=== PATIENT | male | born 1960 | race Caucasian/White ===

== ENCOUNTER 2021-12-24 06:13 | Day surgery (SDC) | payer OTHER ==
[~2021-12-24] VITALS: Ht 175.3 cm; Wt 82.5 kg
[2021-12-24] MEDS ORDERED: COZAAR25 MG PO (06:34)
[2021-12-24] MEDS ORDERED: HYDROCHLOROTH12.5 M1 PO (06:35)
[2021-12-24] MEDS ORDERED: NORVASC10 MG PO (06:35)
[2021-12-24] MEDS ORDERED: OMEPRAZOLE20 MG PO (06:35)
[2021-12-24] MEDS ORDERED: LIPITOR20 MG (06:35)
--- NOTE | 2021-12-24 08:34 | NUR ---
PT ALERT, ORIENTED AND SUPPORTED BY HIS DANY. PT HAS HAD SCOPE PREVIOUS, ALL QUESTIONS ASKED ANSWERED. DANY WILL REMIND FOR DC, PT REQUESTED PRAYER. I WILL FOLLOW NEEDED
--- NOTE | 2021-12-24 09:42 | NUR ---
12/24/21 0942 Iqra Hussein 0909 PT ARRIVED IN PACU SLEEPY WITH NO C/O'S. ABD SOFT. 0920 RESTING. REU.
--- NOTE | 2021-12-25 07:08 | OR ---
[facility] [address] [place], [place] [address] Signed DATE OF OPERATION: 12/24/2021 SURGEON: Antonette Leblanc MD PREOPERATIVE DIAGNOSIS: Personal history of colonic polyps. POSTOPERATIVE DIAGNOSES: 1. 10 mm pedunculated polyp at 28 cm (snare/hot biopsy). 2. 12 mm pedunculated polyp at distal right colon/transverse colon (snare). 3. 6 mm polyp at 80 cm. 4. Small single diverticulum in the left colon. PROCEDURE: Colonoscopy with snare polypectomy and hot biopsy. ESTIMATED BLOOD LOSS: None. INDICATIONS: Juancarlos is a 61-year-old gentleman, asked to see me for a followup colonoscopy. 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 He had a colonoscopy around [address] Cruz[address] He remembers having polyps removed. He had three small polyps measuring 4 mm, 5 mm and 6 mm in 2017. He was told on the telephone to follow up in 5 years. We have been working to track down those results. In the meantime he moved to [place], [place]. 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 He said he continues to drink a little wine each day, but he has cut it way down since he worked construction. He said he has no lower GI complaints. There is no family history of colon cancer or polyps. He did undergo an upper endoscopy in 2020 over in [place], [place]. He said they used Versed and fentanyl and he did fine. In the office, I gave him a booklet on colonoscopy. We reviewed the nature of the test. He understands there is risk including, but not limited to gas bloating, crampy abdominal pain, bleeding, perforation requiring surgery, and missed diagnosis. He told me that he nearly bled to after his last colonoscopy. He is well aware that he is not to take any NSAIDs or aspirin for at least one week if not two weeks after the procedure. We also reviewed the need for the Versed and fentanyl. He had expressed understanding and wished to proceed. PROCEDURE NOTE: Juancarlos was taken into our endoscopy suite and placed in the left lateral decubitus Electronically Signed By: ANTONETTE LEBLANC MD 12/25/21 0708 PATIENT NAME: JUANCARLOS STARR OPERATIVE REPORT DATE OF : 58 REPORT #: [id number] PHYSICIAN: ANTONETTE LEBLANC MD PCP: HARMEET KEMP MD REPORT IS CONFIDENTIAL AND NOT TO BE RELEASED WITHOUT AUTHORIZATION [facility] [address] [place], [place] [address] Signed position. He was given 8 mg of Versed and 150 mcg of fentanyl to cover the case. A digital rectal exam was performed. He had good sphincter tone. No external hemorrhoids. Prostate is a little indurated. The adult colonoscope had been introduced and advanced all the way around into the cecum under direct visualization of the camera. It took a little extra sedation as we went. His prep was quite good. We could easily see the appendiceal orifice and the ileocecal valve. The scope was then slowly withdrawn. We took pictures throughout for photodocumentation. We removed the above mentioned polyps. We did use the snare at 28 cm as well as the distal right colon/transverse colon. We did see just a single small diverticulum in the left colon. The scope was then retroflexed in the rectum and there was no additional pathology noted above the anal canal. After this, the gas was suctioned out and the colonoscope removed. Juancarlos tolerated the procedure quite well. RECOMMENDATIONS: Juancarlos will follow up in my office in 7 to 14 days. It looks like he is going to stay on at least a 3 to 5 year rotation. Antonette Leblanc MD ALB/MODL /[id number] cc: MD Antonette Walters MD Copies: HARMEET KEMP DMD, ANDREW L MD ~ Electronically Signed By: ANTONETTE LEBLANC MD 12/25/21 0708 PATIENT NAME: JUANCARLOS STARR OPERATIVE REPORT DATE OF : 58 REPORT #: [id number] PHYSICIAN: ANOTNETTE LEBLANC MD PCP: HARMEET KEMP MD REPORT IS CONFIDENTIAL AND NOT TO BE RELEASED WITHOUT AUTHORIZATION
== END 2021-12-24 09:55 | disposition home or self-care (01) ==
LOC: DS 06:13 → OPS 06:13 → DS 08:15 → OPS 09:55
PROVIDERS: ATTEND Colon & Rectal Surgery
PROC: 0DBL8ZZ Excision of Transverse Colon, Via Natural or Artificial Opening Endoscopic (ICD-10-PCS; 2021-12-24)
PROC: 0DBF8ZZ Excision of Right Large Intestine, Via Natural or Artificial Opening Endoscopic (ICD-10-PCS; principal; 2021-12-24 08:15)
DX: D12.2 Benign neoplasm of ascending colon (principal); D12.4 Benign neoplasm of descending colon; I10 Essential (primary) hypertension; K21.9 Gastro-esophageal reflux disease without esophagitis; E78.2 Mixed hyperlipidemia; K57.30 Diverticulosis of large intestine without perforation or abscess without bleeding; Z86.010 Personal history of colon polyps; Z20.822 Contact with and (suspected) exposure to COVID-19; Z72.89 Other problems related to lifestyle
CPT/HCPCS: 87502; 99153; G0500; J2250; J3010; J7121; U0003

== ENCOUNTER 2022-01-28 07:25 | Day surgery (SDC) | payer OTHER ==
[~2022-01-28] VITALS: Ht 175.3 cm; Wt 82.7 kg
[~2022-01-28 07:25] MED LIST: COZAAR25 MG PO; HYDROCHLOROTH12.5 M1 PO; LIPITOR20 MG; NORVASC10 MG PO; OMEPRAZOLE20 MG PO; VALACYCLOVIR1000 MG PO
--- NOTE | 2022-01-28 09:55 | NUR ---
01/28/22 0955 Chele Lilly REORIENTED PT TO TIME AND SITUATION. DENIES NAUSEA OR PAIN. FALLS ASLEEP EASILY
--- NOTE | 2022-01-29 07:28 | OR ---
[facility] [address] [place], [place] [address] Signed DATE OF OPERATION: 01/28/2022 SURGEON: Antonette Leblanc MD PREOPERATIVE DIAGNOSES: 1. Gastroesophageal reflux disease. 2. Possible Garcia's esophagus in October 2019 (Dr. Buckley). POSTOPERATIVE DIAGNOSES: 1. Small hiatal hernia. 2. GE junction at 38 cm. 3. Minimal distal gastritis. 4. No visible Garcia's esophagus. PROCEDURE: EGD with CLOtest and biopsies of the antrum and GE junction. ESTIMATED BLOOD LOSS: None. INDICATIONS: Juancarlos is a 61-year-old gentleman, who originally lived in [place], [place]. 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 He said back then he was drinking fairly heavy. He and his family moved down to [place], [place]. 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 He now only drinks one or two glasses of wine a day. He has had trouble with acid reflux requiring omeprazole. Without the omeprazole, he said he is miserable. I actually just helped him with a colonoscopy. In the meantime, we have been tracking down his records. He had gone over to Dr. Buckley in [place], [place]. He had upper endoscopy in October of 2019. No obvious hiatal hernia. He had a little bit of inflammation in the distal half of the stomach confirmed by biopsies. There was some concern he might have Garcia's esophagus. He had a small nodule taken and another biopsy taken down of the distal esophagus. There is some mild concern about goblet cells on the pathology report. He cannot specifically remember any followup recommendations after his upper endoscopy. We had a long discussion regarding his previous records as well as this idea of Garcia's esophagus. It would increase his risk of distal esophageal cancer by 11 times. He thought he wanted to repeat the upper endoscopy at this time with biopsies with plans to have his knee replaced in January of this year. In the office, I had given him a pamphlet on upper endoscopy. He understands the nature of the test. There is risk including, but not limited to gas bloating, crampy abdominal pain, bleeding, perforation requiring surgery, and missed Electronically Signed By: ANTONETTE LEBLANC MD 01/29/22 0728 PATIENT NAME: JUANCARLOS STARR OPERATIVE REPORT DATE OF : 58 REPORT #: [id number] PHYSICIAN: ANTONETTE LEBLANC MD PCP: HARMEET KEMP MD REPORT IS CONFIDENTIAL AND NOT TO BE RELEASED WITHOUT AUTHORIZATION [facility] [address] [place], [place] [address] Signed diagnosis. He has done well with IV Versed and fentanyl just a few weeks ago. He had expressed understanding and wished to proceed. PROCEDURE NOTE: Juancarlos was taken into our endoscopy suite and placed in the supine semi-recumbent position. The posterior oropharynx was anesthetized with Hurricaine spray. A bite block was utilized for the case. He was given a total of 6 mg of Versed and 100 mcg of fentanyl to cover the case. The adult gastroscope had been introduced and advanced all the way out into the 2nd portion of the duodenum without difficulty. The duodenum and pyloric channel were unremarkable. He had minimal inflammation in the distal half of the stomach. We went and took a biopsy of the antrum for CLOtest as well as pathologic review. Upon retroflexion of the scope, he did have quite a bit of up around the GE junction, which we were unable to clear. However, one can see he has a small hiatal hernia. The scope was withdrawn back up through the area of the GE junction, which was compliant without stricture. There was very minimal disruption to his Z-line. No obvious Garcia's esophagus. From above, I can see he has just a small hiatal hernia. We went ahead and took a couple biopsies in this area for pathologic review. His distal, middle and upper esophagus were unremarkable. After this, the gas was suctioned out the gastroscope removed. Juancarlos tolerated his procedure quite well. RECOMMENDATIONS: I will see Juancarlos back in my office in 7 to 14 days to review his results. He is coming back for repeat colonoscopy in three years. He may or may not consider a repeat upper endoscopy at the same time. Antonette Leblanc MD ALB/MODL /[id number] cc: MD Antonette Walters MD Copies: HARMEET KEMP DMD Electronically Signed By: ANTONETTE LEBLANC MD 01/29/22 0728 PATIENT NAME: JUANCARLOS STARR OPERATIVE REPORT DATE OF : 58 REPORT #: [id number] PHYSICIAN: ANTONETTE LEBLANC MD PCP: HARMEET KEMP MD REPORT IS CONFIDENTIAL AND NOT TO BE RELEASED WITHOUT AUTHORIZATION [facility] [address] [place], [place] [address] Signed ANTONETTE LEBLANC MD ~ Electronically Signed By: ANTONETTE LEBLANC MD 01/29/22 0728 PATIENT NAME: JUANCARLOS STARR OPERATIVE REPORT DATE OF : 58 REPORT #: [id number] PHYSICIAN: ANTONETTE LEBLANC MD PCP: HARMEET KEMP MD REPORT IS CONFIDENTIAL AND NOT TO BE RELEASED WITHOUT AUTHORIZATION
--- NOTE | 2022-01-30 17:02 | PATH ---
[facility] [address] [place], [place] [address] Signed SPECIMEN(S): A ANTRUM/PYLORUS BIOPSY SPECIMEN(S): B GE JUNCTION SPECIMEN SOURCE: A. ANTRUM/PYLORUS BIOPSY B. GE JUNCTION CLINICAL HISTORY: Acid reflux, possible Garcia's. Postop: Small hiatal hernia, mild gastritis FINAL PATHOLOGIC DIAGNOSIS: A. Stomach, antrum/pylorus, biopsy: - Gastric antral mucosa with focal active gastritis. - Negative for Helicobacter pylori by IHC. B. Gastroesophageal junction, biopsy: - Esophageal squamous mucosa with no significant pathologic changes. BRP:hanna:[id number] MICROSCOPIC EXAMINATION: Histologic sections of all submitted blocks are examined by light microscopy. These findings, together with the gross examination, support the pathologic diagnosis. GROSS DESCRIPTION: Two specimens are received in two containers, labeled "Juancarlos Dugan." A. The specimen, labeled " Ritchie Juancarlos, #1," and designated on the requisition "antrum/pylorus biopsy," is received in formalin and consists of one blancas soft tissue fragment that measures 0.5 cm in greatest dimension. The specimen is entirely submitted in cassette (A1). B. The specimen, labeled " Juancarlos Dugan, #2," and designated on the requisition "GE junction," is received in formalin and consists of three white-blancas soft tissue fragments that measure 0.4 to 0.6 cm in greatest dimension. The specimen is entirely submitted in cassette (B1). FB (under the direct supervision of a pathologist) The Gross Description was prepared using a voice recognition system. The report was reviewed for accuracy; however, sound-alike word errors, addition and/or deletions may occur. If there is any question about this report, please contact Client Services. ADDITIONAL NOTES: Immunohistochemical and/or in situ hybridization studies were performed on this PATIENT NAME: JUANCARLOS DUGAN PATHOLOGY DATE OF : 58 REPORT #: [id number] PHYSICIAN: LISA PATHOLOGY PCP: HARMEET KEMP MD REPORT IS CONFIDENTIAL AND NOT TO BE RELEASED WITHOUT AUTHORIZATION [facility] [address] [facility] [place], [place] [address] Signed case with the appropriate positive controls that react as expected. This test was developed, and its performance characteristics determined by [facility]. It has not been cleared or approved by the U.S. Food and Drug Administration. The FDA has determined that such clearance or approval is not necessary. This test is used for clinical purposes. It should not be regarded as investigational or for research. [facility] is certified under the Clinical Laboratory Improvement Amendments of 1988 (CLIA) as qualified to perform high complexity clinical laboratory testing. This assay has not been validated for specimens that have been decalcified. PERFORMING LABORATORY: The technical component was performed by [facility], [address] [place] [id number] (CLIA# [id number]). Professional interpretation was performed by [facility], [address] [place] [id number] (CLIA# [id number]). Diagnostician: Gonzalo Mcfarland MD Pathologist Electronically Signed 01/30/2022 Copies: ~ PATIENT NAME: JUANCARLOS DUGAN PATHOLOGY DATE OF : 58 REPORT #: [id number] PHYSICIAN: LISA PATHOLOGY PCP: HARMEET KEMP MD REPORT IS CONFIDENTIAL AND NOT TO BE RELEASED WITHOUT AUTHORIZATION
== END 2022-01-28 10:25 | disposition home or self-care (01) ==
LOC: DS 07:25
PROVIDERS: ATTEND Colon & Rectal Surgery
PROC: 0DB68ZZ Excision of Stomach, Via Natural or Artificial Opening Endoscopic (ICD-10-PCS; principal; 2022-01-28 09:00)
DX: K21.9 Gastro-esophageal reflux disease without esophagitis (principal); K44.9 Diaphragmatic hernia without obstruction or gangrene; K29.70 Gastritis, unspecified, without bleeding; N40.0 Benign prostatic hyperplasia without lower urinary tract symptoms; I10 Essential (primary) hypertension; E78.2 Mixed hyperlipidemia; M17.0 Bilateral primary osteoarthritis of knee; F10.90 Alcohol use, unspecified, uncomplicated; K57.30 Diverticulosis of large intestine without perforation or abscess without bleeding; Z86.010 Personal history of colon polyps
CPT/HCPCS: 36415; 87077; 99153; G0500; J2250; J3010; J7121